=== PATIENT | male | born 1995 | race African-American/Black ===

== ENCOUNTER 2023-08-19 16:41 | Emergency (ER) | payer SELFPAY ==
[2023-08-19 18:06] LABS: #Basophils 0.1 10x3/uL (0.0-0.2); #Eosinphils 0.3 10x3/uL (0.0-0.5); #Monocytes 0.5 10x3/uL (0.0-1.1); #Neutrophils 5.4 10x3/uL (1.5-8.4); %Basophils 0.6 % (0.0-2.0); %Eosinophils 3.6 % (0.0-6.0); %Lymphocytes 32.2 % (18.0-47.0); %Monocytes 5.4 % (0.0-10.0); %Neutrophils 57.9 % (40.0-75.0); Hematocrit 36.7 % (38.8-50.0); Hemoglobin 12.4 g/dL (13.5-17.5); Mean Corpuscular HGB CONC 33.8 g/dL (32.0-36.0); Mean Corpuscular Hemoglobin 27.3 pg (27.0-33.0); Mean Corpuscular Volume 80.8 fl (81.2-95.1); Mean Platelet Volume 9.4 fl (7.4-10.4); Platelet Count 212 10x3/uL (150-450); RBC Distribution Width 15.3 % (11.5-14.5); Red Blood Cell (RBC) Count 4.54 10x6/uL (4.32-5.72); White Blood Cell (WBC) Count 9.4 10x3/uL (3.5-10.5)
[2023-08-19 18:26] LABS: ALT (SGPT) 32 U/L (8-55); AST (SGOT) 40 U/L (5-34); Albumin 4.4 g/dL (3.5-5.0); Alkaline Phosphatase 57 U/L (40-110); Anion Gap 14 mmol/L (10-20); BUN (Urea Nitrogen) 12 mg/dL (8.9-20.6); Bilirubin, Total 0.6 mg/dL (0.2-1.2); Calc. Creatinine Clearance 0 mL/min (70-130); Calcium 9.4 mg/dL (7.8-10.44); Carbon Dioxide 25 mmol/L (22-29); Chloride 105 mmol/L (98-107); Estimated GFR 122; Glucose 95 mg/dL (70-105); Potassium 4.2 mmol/L (3.5-5.1); Protein, Total 7.4 g/dL (6.0-8.3); Sodium 140 mmol/L (136-145)
[2023-08-19 18:32] LABS: Troponin I 0.013 ng/mL (< 0.028)
== END 2023-08-19 19:19 | disposition home or self-care (01) ==
LOC: CSHERS 16:41
DX: R07.89 Other chest pain (principal); J11.1 Influenza due to unidentified influenza virus with other respiratory manifestations; J45.909 Unspecified asthma, uncomplicated; R01.1 Cardiac murmur, unspecified; F17.210 Nicotine dependence, cigarettes, uncomplicated; Z55.6 Problems related to health literacy
CPT/HCPCS: 71045; 80053; 84484; 85025; 93005